=== PATIENT | male | born 1975 | race Caucasian/White ===

== ENCOUNTER 2017-05-06 17:43 | Emergency (ER) | payer OTHER ==
[2017-05-06 18:00] VITALS: BP 146/94
[2017-05-06 18:45] LABS: BILIRUBIN,URINE NEG (NEG); CLARITY,URINE CLEAR; COLOR,URINE STRAW; GLUCOSE,URINE NEG (NEG)
[2017-05-06 18:46] LABS: BACTERIA,URINE 0 /HPF (0-FEW); NITRITE,URINE NEG (NEG); RBC,URINE 0 /HPF (0-2); UROBILINOGEN,URINE 0.2 mg/dL (0.2 mg/dL); WBC,URINE 0 /HPF (0-4)
--- NOTE | 2017-05-06 19:28 | PHYS DOC ---
Past History Past Medical History: No Pertinent History Alcohol Use: None Drug Use: None Adult General Chief Complaint Chief Complaint: MALE UROGENITAL PROBLEMS HPI HPI Patient is a 41-year-old male who presents with the complaint of some burning when he urinates, lesions on the penis, and feeling that he has some fullness in the bladder area after he has urinated. This has all been going on for about 4 weeks. Patient states he did an online STD check where they check blood and urine, he was positive for "herpes 1" but nothing else. He thought may be he had a yeast infection because he had been getting antibiotics for sinus surgery and he was using Monistat on the area. That has not helped. He's had no fever or chills. He's never had this before. The patient is uncircumcised and he has expressed an interest in being circumcised. He's had no blood in his urine. He drinks plenty of fluids and his urine is clear. 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 Review of Systems Review of Systems Constitutional: Denies fever or chills [] Eyes: Denies change in visual acuity, redness, or eye pain [] HENT: Recent sinus surgery and sinus congestion but that is clearing up Respiratory: Denies cough or shortness of breath [] GI: Denies abdominal pain, nausea, vomiting, bloody stools or diarrhea [] : As in history of present illness Musculoskeletal: Denies back pain or joint pain [] Integument: As in history of present illness Allergies Allergies Allergies Coded Allergies Type Severity Reaction Last Updated Verified No Known Drug Allergies 05/06/17 No Physical Exam Physical Exam Constitutional: Well developed, well nourished, no acute distress, non-toxic appearance. Alert, ambulatory, mentating normally. HENT: Normocephalic, atraumatic, bilateral external ears normal, nose normal. [] Eyes: conjunctiva normal, no discharge. [] Neck: Normal range of motion, no stridor. [] Abdomen: Bowel sounds normal, soft, no tenderness, no masses, no pulsatile masses. Bladder is not palpable. No suprapubic tenderness. : Normal penis and scrotum without swelling, without redness. On the glans, there are a few nonspecific appearing pink macular rash type lesions mostly on the superior aspect. There are no vesicles. The rash is nonspecific in appearance and does not appear excoriated. Skin: Warm, dry, no erythema, no rash. [] Extremities: No tenderness, no cyanosis, no clubbing, ROM intact, no edema. [] Neurologic: Alert and oriented X 3, normal motor function, normal sensory function, no focal deficits noted. [] Current Patient Data Vital Signs Vital Signs Date Time Temp Pulse Resp B/P (MAP) Pulse Ox O2 Delivery O2 Flow Rate FiO2 05/06/17 18:00 98.0 63 16 96 Lab Results Laboratory Tests Test 05/06/17 18:00 Urine Collection Type Unknown Urine Color Straw Urine Clarity Clear Urine pH 6.5 Urine Specific [place] <=1.005 Urine Protein Neg (NEG-TRACE) Urine Glucose (UA) Neg mg/dL (NEG) Urine Ketones (Stick) Neg mg/dL (NEG) Urine Blood Neg (NEG) Urine Nitrite Neg (NEG) Urine Bilirubin Neg (NEG) Urine Urobilinogen Dipstick 0.2 mg/dL (0.2 mg/dL) Urine Leukocyte Esterase Neg (NEG) Urine RBC 0 /HPF (0-2) Urine WBC 0 /HPF (0-4) Urine Squamous Epithelial Cells None /LPF Urine Bacteria 0 /HPF (0-FEW) EKG EKG [] Radiology/Procedures Radiology/Procedures [] Course & Med Decision Making Course & Med Decision Making Pertinent Labs and Imaging studies reviewed. (See chart for details) Urinalysis within normal limits. Bladder scan with very small amount of postvoid residual. See instructions for plan. The patient is concerned with some red/pink spots on the glans of his penis. They appear nonspecific to me. They do not appear herpetic or vesicular. They are not itchy. I asked him to follow up with urology when [place]. He is also interested in having elective circumcision and I advised him to follow up for that question as well. He also had a subjective complaint of fullness in the lower abdomen after urinating. If this persists, he should follow-up with PCP when he [place] in one week. [] Dragon Disclaimer Dragon Disclaimer This chart was dictated in whole or in part using Voice Recognition software in a busy, high-work load, and often noisy Emergency Department environment. It may contain unintended and wholly unrecognized errors or omissions. Departure Departure: Impression: Primary Impression: Dysuria Disposition: HOME, SELF-CARE Condition: STABLE Referrals: PCP,NO (PCP) Additional Instructions: Today in the ER, your urine test was negative for infection, and your bladder was empty after you urinated. If your fullness sensation persists, see your doctor; you may need an ultrasound or CT scan of your abdomen. CHARLIE JAIN MD May 06, 2017 19:28
== END 2017-05-06 19:55 | disposition home or self-care (01) ==
LOC: ER 17:43
DX: R30.0 Dysuria (principal); L98.8 Other specified disorders of the skin and subcutaneous tissue
CPT/HCPCS: 36415; 81001; 87491; 87591; 99284